=== PATIENT | male | born 1960 | race Hispanic/Latino ===

== ENCOUNTER → 2019-02-19 | Outpatient (CLI) | payer OTHER ==
--- NOTE | 2019-02-19 17:35 | Diagnostic Imaging Report ---
EXAM: CT Abdomen and Pelvis WITHOUT contrast INDICATION: Renal colic. Gross hematuria. COMPARISON: None. TECHNIQUE: Abdomen and pelvis were scanned utilizing a multidetector helical scanner from the lung base to the pubic symphysis without administration of IV contrast. Absence of intravenous contrast decreases sensitivity for detection of focal lesions and vascular pathology. Coronal and sagittal reformations were obtained. Routine protocol was performed. IV CONTRAST: None. ORAL CONTRAST: Water RADIATION DOSE: Total DLP: 718.72 mGy*cm Estimated effective dose: (DLP x 0.015 x size factor) mSv COMPLICATIONS: None FINDINGS: LINES and TUBES: None. LOWER THORAX: Unremarkable HEPATOBILIARY: No focal hepatic lesions. No biliary ductal dilation. GALLBLADDER: No radio-opaque stones or sludge. No wall thickening. SPLEEN: No splenomegaly. PANCREAS: No focal masses or ductal dilatation. ADRENALS: No adrenal nodules KIDNEYS/URETERS: No hydronephrosis. No cystic or solid mass lesions. 8 mm obstructing calculus in the left UPJ on coronal image 56, resulting in mild left hydronephrosis. GI TRACT: No abnormal distention, wall thickening, or evidence of bowel obstruction. There are diverticula within the colon without evidence of diverticulitis. Appendix is normal. PELVIC ORGANS/BLADDER: Unremarkable. LYMPH NODES: No lymphadenopathy. VESSELS: There is mild atherosclerotic disease in the aorta and major arterial branches. PERITONEUM / RETROPERITONEUM: No free air or fluid. BONES: Degenerative disc disease at L4-L5. SOFT TISSUES: Bilateral small fat-containing inguinal hernias, right larger than left. Small fat-containing umbilical hernia. IMPRESSION: 1. 8 mm obstructing calculus in the left UPJ resulting in mild left hydronephrosis. Dr. Bush was notified of the findings at 6:05 PM on 02/19/2019. Signed by: Dr. Derrek Anderson M.D. on 02/19/2019 6:11 PM
== END ==
LOC: CT 16:31
PROVIDERS: ATTEND Family Medicine
DX: N23 Unspecified renal colic (principal); R31.0 Gross hematuria
CPT/HCPCS: 74176

== ENCOUNTER → 2019-07-09 | Day surgery (SDC) | payer OTHER ==
[2019-07-07 17:08] LABS: BASOPHILS % 0.5 % (0.0-1.0); EOSINOPHILS # (AUTO) 0.2 (0.0-0.4); EOSINOPHILS % 2.6 % (0.0-6.0); HEMATOCRIT 39.7 % (38.2-49.6); HEMOGLOBIN 13.6 g/dL (14.0-18.0); LYMPHOCYTES # (AUTO) 1.5 (1.0-3.2); LYMPHOCYTES % 18.1 % (18.0-39.1); MEAN CORPUSCULAR HEMOGLOBIN 29.4 pg (28-32); MEAN CORPUSCULAR HGB CONC 34.3 g/dL (31-35); MEAN CORPUSCULAR VOLUME 85.9 fL (81-99); MONOCYTES % 11.5 % (4.4-11.3); NEUTROPHILS # (AUTO) 5.6 (2.1-6.9); NEUTROPHILS % 66.4 % (38.7-80.0); PLATELET COUNT 194 x10e3/uL (140-360); RED BLOOD COUNT 4.62 x10e6/uL (4.3-5.7); RED CELL DISTRIBUTION WIDTH 13.1 % (11.7-14.4)
[2019-07-07 17:19] LABS: INR 1.02; PROTHROMBIN TIME 13.9 seconds (11.9-14.5)
[2019-07-07 17:20] LABS: PARTIAL THROMBOPLASTIN TIME 29.2 seconds (23.8-35.5)
[2019-07-07 17:57] LABS: ALANINE AMINOTRANSFERASE 31 IU/L (0-55); ALBUMIN 4.4 g/dL (3.5-5.0); ALBUMIN/GLOBULIN RATIO 1.3 (0.8-2.0); ALKALINE PHOSPHATASE 71 IU/L (40-150); ANION GAP 15.5 mmol/L (8-16); BLOOD UREA NITROGEN 29 mg/dL (7-26); BUN/CREATININE RATIO 24 (6-25); CALCIUM 10.2 mg/dL (8.4-10.2); CARBON DIOXIDE 25 mmol/L (22-29); CHLORIDE 100 mmol/L (98-107); CREATININE, SERUM 1.19 mg/dL (0.72-1.25); EST GLOMERULAR FILTRATION RATE > 60 ML/MIN (60-); GLUCOSE 102 mg/dL (74-118); POTASSIUM 3.5 mmol/L (3.5-5.1); SODIUM 137 mmol/L (136-145)
[2019-07-07 18:14] LABS: CHOL/HDL RATIO 3.1 (3.9-4.7)
[~2019-07-09] VITALS: Ht 177.8 cm; Wt 90.7 kg
[~2019-07-09] MED LIST: AMLODIPINE BESYL5 MG PO; ATORVASTATIN CA20 MG PO; FENTANYL CITRATE/PF 100MCG/2 ML INJ ONE; GLIPIZIDE5 MG PO; HEPARIN SOD/SOD CHLORIDE 2,000 ML ONE; IOPAMIDOL 370 MG/ML 200 ML INFUS..BTL INJ ONE; LIDOCAINE HCL 2% LOCAL 20 ML VIAL ONE; LOSARTAN POTAS100 MG PO; LOSARTAN-HCTZ1 EAC1 PO; METFORMIN HCL500 MG PO; MIDAZOLAM HCL 2 MG/2 ML VIAL ONE; SODIUM CHLORIDE 0.9% 1000ML 1,000 ML ONE; VERAPAMIL HCL 2.5 MG/ML 2 ML VIAL ONE
--- OUTSIDE RECORDS SUMMARY | 2019-07-09 12:02 | XMS REPORT ---
Author Author [facility] Address Unknown Phone Unavailable Care Team Providers [employer] Name Role Phone ROBERTO BUSH Unavailable Unavailable Payers Payer Name Policy Type Policy Number Effective Date Expiration Date Problems This patient has no known problems. Allergies, Adverse Reactions, Alerts Allergy Name Allergy Type Status Severity Reaction(s) Onset Date Inactive Date Treating Clinician Comments No Known Allergies DA Active U 2019-02-26 00:00:00 Medications This patient has no known medications. Results Test Description Test Time Test Comments Text Results Atomic Results Result Comments LIPOMA 2019-05-08 18:00:00 RUN DATE: 05/08/19 [facility] PAGE 1 RUN TIME: 1800 Specimen Inquiry RUN USER: INTERFACE PATIENT: JACE WRIGHT LOC: [place] #: [id number] AGE/SX: 58/M ROOM: RE05/07/19REG DR: Irving Mcdonald MD : 60 BED: DIS: STATUS: [facility] [place] TLOC: SPEC #: [id number] RECD: 05/07/19 STATUS: [facility] #: [id number] ARIANA: 05/07/19- [facility] DR: Irving Mcdonald MD ENTERED: 05/07/19 SP TYPE: LIPOMA OTHR DR: Roberto Bush MD ORDERED: GROSS COPIES TO: Irving Mcdonald MD [address] [place] [address] Roberto Bush MD [address] [place] [address] PROCEDURES: GROSS (05/08/19-0351) TISSUES: 1. INGUINAL REGION, NOS - LEFT CORD LIPOMA 2. INGUINAL REGION, NOS - RIGHT CORD LIPOMA CLINICAL HISTORY COLLECTION DATE: 05/07/2019 INGUINAL HERNIA FINAL DIAGNOSIS Lipoma of left cord, excision: MATURE ADIPOSE TISSUE WITH FEW UNREMARKABLE VASCULAR SPACES NO ATYPICAL FEATURES PRESENT NEGATIVE FOR MALIGNANCY Lipoma of right cord, excision: MATURE ADIPOSE TISSUE WITH FEW UNREMARKABLE VASCULAR SPACES NO ATYPICAL FEATURES PRESENT NEGATIVE FOR MALIGNANCY RRB/juan antonio Travis [id number] CONTINUED ON NEXT PAGE RUN DATE: 05/08/19 [facility] PAGE 2 RUN TIME: 1800 Specimen Inquiry RUN USER: INTERFACE SPEC #: [id number] PATIENT: JACE WRIGHT #[id number] (Continued)---- MACROSCOPIC The first specimen is received in formalin, labeled with the patient's name, and identified as "lipoma of the left cord". The specimen consists of jacques yellow soft tissue covered by a thin membranous tissue measuring 6.7 x 2.0 x 1.7 cm. Sectioning reveals jacques-yellow soft cut surface. Police Patrol Officer section is submitted as (1). The second specimen is received in formalin, labeled with the patient's name, and identified as "lipoma of the right cord". The specimen consists of jacques-yellow soft lobulated tissue covered by a thin membranous tissue measuring 6.5 x 4.8 x 2.0 cm. Sectioning reveals jacques-yellow soft cut surface. Police Patrol Officer section is submitted as (2). GROSS PERFORMED AT [facility] [address] [place] [phone])[phone] MICROSCOPIC All of the stains, including any controls performed, stain appropriately. MICROSCOPIC PERFORMED AT [facility] [address] [place] [phone])[phone] PERFORMING SITE Diagnosis performed at: [facility], LISA [address] [place] [address] Signed SIGNATURE ON FILE Ronnie Gamble MD 05/08/19 1800 END OF REPORT GLUBED 2019-05-07 07:52:00 GLUBED (test code=GLUBED) 113 mg/dL 74-106 Performed by certified nickel operator at [facility] COMPREHENSIVE METABOLIC [id number] 16:34:00* Test Item Value Reference Range Comments SODIUM (test code=NA) 136 mmol/L 136-145 POTASSIUM (test code=K) 4.0 mmol/L 3.5-5.1 CHLORIDE (test code=CL) 98.0 mmol/L 98-107 CARBON DIOXIDE (test code=CO2) 30.0 mmol/L 21-32 ANION GAP (test code=GAP) 12.0 10-20 GLUCOSE (test code=GLU) 258 mg/dL 74-106 BLOOD UREA NITROGEN (test code=BUN) 27 mg/dL 7-18 GLOMERULAR FILTRATION RATE (test code=GFR) 57 mL/min >=60 Estimated GFR by using Modified MDRD formula.Chronic kidney disease is defined as either kidney damageor GFR <60 mL/min/1.73 m2 for >3 months. CREATININE (test code=CREAT) 1.30 mg/dL 0.7-1.3 BUN/CREATININE RATIO (test code=BUN/CREA) 20.8 10-20 TOTAL PROTEIN (test code=PROT) 7.8 gram/dL 6.4-8.2 ALBUMIN (test code=ALB) 4.1 g/dL 3.4-5.0 GLOBULIN (test code=GLOB) 3.7 gram/dL 2.7-4.2 ALBUMIN/GLOBULIN RATIO (test code=A/G) 1.1 0.75-1.50 CALCIUM (test code=CA) 9.6 mg/dL 8.5-10.1 BILIRUBIN TOTAL (test code=BILT) 0.40 mg/dL 0.0-1.0 SGOT/AST (test code=AST) 14 IUnit/L 15-37 SGPT/ALT (test code=ALT) 41 IUnit/L 12-78 ALKALINE PHOSPHATASE TOTAL (test code=ALKP) 111 IUnit/L 45-117 Note change in reference range due to change in reagent. - XR CHEST 2 [id number] 16:34:00 FAX: Irving Montero MD [phone] [place]: O St: PRE FAX: Roberto Mims MD [phone] Name: JACE WRIGHT [facility] : 1960 Age/S: 58/M [address] [facility] Unit #: [id number] Loc: [place] [address] Phys: Irving Mcdonald MD Acct: [id number] Dis Date: Status: PRE [facility] [place] PHONE #: [phone] Exam Date: 04/30/2019 0108 FAX #: [phone] Reason: PRE OP EXAMS: CPT CODE: [id number] XR CHEST 2 V 68766 REASON FOR EXAM: PRE OP Exam Order Date: 04/30/2019 2:20 PM Ordering MFransico: Irving Mcdonald MD PROCEDURE: - XR CHEST 2 V COMPARISON: None FINDINGS: The lungs are clear. There is no pleural effusion or pneumothorax. Pulmonary vascularity is within normal limits. Cardiomediastinal silhouette is normal in size for technique. The mediastinal contours are within normal limits. Musculoskeletal structures are within normal limits. The visualized upper abdomen is within normal limits. IMPRESSION: No acute cardiopulmonary process. E lectronically Signed by Rich Shetty MD on 04/30/2019 at 1634 Reported and signed by: Rich Shetty MD CC: Db Hagan; Roberto Bush MD Technologist: Gopi Odell RT(R) Trnscrd Date/Time/By: 04/30/2019 (3557) : By: RenettaRBobyR R31 Orig Print D/T: S: 04/30/2019 (8920) PAGE 1 Signed Report CBC W/AUTO [id number] 15:58:00* Test Item Value Reference Range Comments WHITE BLOOD CELL (test code=WBC) 13.1 K/mm3 4.5-12.5 RED BLOOD CELL (test code=RBC) 4.81 mill/mm3 4.0-5.8 HEMOGLOBIN (test code=HGB) 14.0 gram/dL 13.0-17.5 HEMATOCRIT (test code=HCT) 42.1 % 42.0-52.0 MEAN CELL VOLUME (test code=MCV) 87.5 fL 80-98 MEAN CELL HGB (test code=MCH) 29.1 picogram 27.0-33.0 MEAN CELL HGB CONCETRATION (test code=MCHC) 33.3 gram/dL 33.0-36.0 RED CELL DISTRIBUTION WIDTH (test code=RDW) 13.4 % 11.6-16.2 RED CELL DISTRIBUTION WIDTH SD (test code=RDW-SD) 42.7 fL 37.0-51.0 PLATELET COUNT (test code=PLT) 229 K/mm3 150-450 MEAN PLATELET VOLUME (test code=MPV) 10.5 fL 6.7-11.0 NEUTROPHIL % (test code=NT%) 80.4 % 39.0-69.0 IMMATURE GRANULOCYTE % (test code=IG%) 2.0 % 0.0-5.0 LYMPHOCYTE % (test code=LY%) 7.8 % 25.0-55.0 MONOCYTE % (test code=MO%) 9.5 % 0.0-10.0 EOSINOPHIL % (test code=EO%) 0.0 % 0.0-5.0 BASOPHIL % (test code=BA%) 0.3 % 0.0-1.0 NUCLEATED RBC % (test code=NRBC%) 0.0 % 0-0 NEUTROPHIL # (test code=NT#) 10.55 K/mm3 1.8-7.7 IMMATURE GRANULOCYTE # (test code=IG#) 0.26 x10 3/uL 0-0.03 LYMPHOCYTE # (test code=LY#) 1.02 K/mm3 1.0-5.0 MONOCYTE # (test code=MO#) 1.24 K/mm3 0-0.8 EOSINOPHIL # (test code=EO#) 0.00 K/mm3 0.0-0.5 BASOPHIL # (test code=BA#) 0.04 K/mm3 0.0-0.2 NUCLEATED RBC # (test code=NRBC#) 0.00 K/mm3 0.0-0.1 MANUAL DIFF REQUIRED (test code=MDIFF) NO CBC W/AUTO [id number] 15:55:00* Test Item Value Reference Range Comments WHITE BLOOD CELL (test code=WBC) K/mm3 4.5-12.5 RED BLOOD CELL (test code=RBC) mill/mm3 4.0-5.8 HEMOGLOBIN (test code=HGB) 14.0 gram/dL 13.0-17.5 HEMATOCRIT (test code=HCT) 42.1 % 42.0-52.0 MEAN CELL VOLUME (test code=MCV) fL 80-98 MEAN CELL HGB (test code=MCH) picogram 27.0-33.0 MEAN CELL HGB CONCETRATION (test code=MCHC) gram/dL 33.0-36.0 RED CELL DISTRIBUTION WIDTH (test code=RDW) % 11.6-16.2 RED CELL DISTRIBUTION WIDTH SD (test code=RDW-SD) fL 37.0-51.0 PLATELET COUNT (test code=PLT) K/mm3 150-450 MEAN PLATELET VOLUME (test code=MPV) fL 6.7-11.0 NEUTROPHIL % (test code=NT%) % 39.0-69.0 IMMATURE GRANULOCYTE % (test code=IG%) % 0.0-5.0 LYMPHOCYTE % (test code=LY%) % 25.0-55.0 MONOCYTE % (test code=MO%) % 0.0-10.0 EOSINOPHIL % (test code=EO%) % 0.0-5.0 BASOPHIL % (test code=BA%) % 0.0-1.0 NEUTROPHIL # (test code=NT#) K/mm3 1.8-7.7 LYMPHOCYTE # (test code=LY#) K/mm3 1.0-5.0 MONOCYTE # (test code=MO#) K/mm3 0-0.8 EOSINOPHIL # (test code=EO#) K/mm3 0.0-0.5 BASOPHIL # (test code=BA#) K/mm3 0.0-0.2 KIDNEY STONE [id number] 10:27:00* Test Item Value Reference Range Comments KIDNEY STONE ANALYSIS (test code=STONEK) mm () Specimens received as a mixture of whole stones andfragments. SOURCE OF STONE (test code=STONESRC) LEFT URETERAL STONES STONE ANALYSIS COMMENT (test code=STONECOM) NO NIDUS VISUALIZED NIDUS Color: Brown Size : Specimens received as a mixture of whole stones and fragments. Composition: Percentage (Represents the % composition) Ca oxalate dihydrate 35 % Ca oxalate monohydr. 60 % Calcium phosphate 05 % Test performed at: [facility] [address] [place] [address] STONE ANALYSIS (test code=STONE) () Photograph will follow under separate cover. WEIGHT OF STONE (test code=STONEWT) 63.0 mg () Test performed at: [employer] [place] [address] SPECIMEN COMMENTS: LEFT URETERAL STONES FOR ANALYSISKIDNEY STONE ANALYSIS 2019-03-12 10:17:00* Test Item Value Reference Range Comments KIDNEY STONE ANALYSIS (test code=STONEK) mm () Specimens received as a mixture of whole stones andfragments. SOURCE OF STONE (test code=STONESRC) STONE ANALYSIS COMMENT (test code=STONECOM) NIDUS STONE ANALYSIS (test code=STONE) () Photograph will follow under separate cover. WEIGHT OF STONE (test code=STONEWT) 63.0 mg () Test performed at: [facility] [address] [place] [address] SPECIMEN COMMENTS: LEFT URETERAL STONES FOR [id number] 15:35:00 RUN DATE: 03/05/19 [facility] PAGE 1 RUN TIME: 1535 Specimen Inqui ry RUN USER: INTERFACE PATIENT: JACE WRIGHT ACCT #: [id number] LOC: [facility] U #: [id number] AGE/SX: 58/M ROOM: RE03/04/19REG DR: Irving Mcdonald MD : 60 BED: DIS: STATUS: [facility] TLOC: SPEC #: [id number] RECD: 03/04/19 STATUS: [facility] REQ #: [id number] ARIANA: 03/04/[address]: Irving Mcdonald MD ENTERED: 03/04/19 SP TYPE: CALCULI OTHR DR: Roberto Bush MD ORDERED: GROSS COPIES TO: Irving Mcdonald MD [address] [place] [address] Roberto Bush MD [address] [place] [address] PROCEDURES: GROSS (03/04/19-) TISSUES: LEFT URETERAL ORIFICE - STONES CLINICAL HISTORY COLLECTION DATE: 03/04/19 LEFT URETERAL STONES FINAL DIAGNOSIS Left ureteral stones, removal: CALCULI TO BE SENT FOR CHEMICAL ANALYSIS W/ D 42496 MACROSCOPIC The specimen is received in a container labeled with the patient's name and identified as "left uret eral stones". It consists of jacques calculi measuring 0.6 cm in aggregate. GROSS PERFORMED AT [facility] [address] [facility] CONTINUED O N NEXT PAGE RUN DATE: 03/05/19 [facility] PAGE 2 RUN TIME: 1535 Specimen Inquiry RUN USER: INTERFACE SPEC #: [id number] PATIENT : JACE WRIGHT #[id number] (Continued) MACROSCOPIC (Continued) [place] [id number] [phone])[phone]--- --------- Signed SIGNATURE ON FILE Darlene Hernandez MD 0 03/05/19 1535 END OF REPORT - XR CYSTOURETHRO [id number] 16:35:00 FAX: Irving Montero MD [phone] [place]: St: [facility] FAX: Roberto Mims MD [phone] Name: JACE WRIGHT [facility] : 1960 Age/S: 58/M [address] [facility] Unit #: [id number] Loc: [place] [address] Phys: Irving Mcdonald MD Acct: [id number] Dis Date: Status: REG [facility] [place] PHONE #: [phone] Exam Date: 03/04/2019 7781 FAX #: [phone] Reason: CYSTO RETRO EXAMS: CPT CODE: [id number] XR CYSTOURETHRO RETRO 42997 TECHNIQUE - XR CYSTOURETHRO RETRO . COMPARISON: None provided. HISTORY: 58 years Male CYSTO RETRO FINDINGS: 36.3 seconds fluoroscopy time. 8.04 mg. Contrast in the left collecting system. Left ureter stent noted. Please see the intraoperative dictation. 15 images. IMPRESSION: 36.3 seconds fluoroscopy time. 8.04 mg. Contrast in the left collecting system. Left ureter stent noted. Please see the intraoperative dictation. 15 images. at 1635 Reported and signed by: Camilo Huang M.D. CC: Irving Mcdonald M.D.; Roberto Bush MD Technologist: Allegra Harris(R) Trnscrd Date/Time/By: 03/04/2019 (9976) : By: RobertYOHAN Orig Print D/T: S: 03/04/2019 (6995) PAGE 1 Signed Report [id number] 12:32:00* Test Item Value Reference Range Comments GLUBED (test code=GLUBED) 99 mg/dL 74-106 Performed by certified nickel operator at [facility] COMPREHENSIVE METABOLIC [id number] 14:28:00* Test Item Value Reference Range Comments SODIUM (test code=NA) 140 mmol/L 136-145 POTASSIUM (test code=K) 3.3 mmol/L 3.5-5.1 CHLORIDE (test code=CL) 100.0 mmol/L 98-107 CARBON DIOXIDE (test code=CO2) 32.0 mmol/L 21-32 ANION GAP (test code=GAP) 11.3 10-20 GLUCOSE (test code=GLU) 106 mg/dL 74-106 BLOOD UREA NITROGEN (test code=BUN) 23 mg/dL 7-18 GLOMERULAR FILTRATION RATE (test code=GFR) > 60 mL/min >=60 Estimated GFR by using Modified MDRD formula.Chronic kidney disease is defined as either kidney damageor GFR <60 mL/min/1.73 m2 for >3 months. CREATININE (test code=CREAT) 1.20 mg/dL 0.7-1.3 BUN/CREATININE RATIO (test code=BUN/CREA) 19.2 10-20 TOTAL PROTEIN (test code=PROT) 8.2 gram/dL 6.4-8.2 ALBUMIN (test code=ALB) 4.3 g/dL 3.4-5.0 GLOBULIN (test code=GLOB) 3.9 gram/dL 2.7-4.2 ALBUMIN/GLOBULIN RATIO (test code=A/G) 1.1 0.75-1.50 CALCIUM (test code=CA) 9.9 mg/dL 8.5-10.1 BILIRUBIN TOTAL (test code=BILT) 0.50 mg/dL 0.0-1.0 SGOT/AST (test code=AST) 19 IUnit/L 15-37 SGPT/ALT (test code=ALT) 41 IUnit/L 12-78 ALKALINE PHOSPHATASE TOTAL (test code=ALKP) 80 IUnit/L 45-117 Note change in reference range due to change in reagent. COMPREHENSIVE METABOLIC [id number] 14:20:00* Test Item Value Reference Range Comments SODIUM (test code=NA) 140 mmol/L 136-145 POTASSIUM (test code=K) 3.3 mmol/L 3.5-5.1 CHLORIDE (test code=CL) 100.0 mmol/L 98-107 CARBON DIOXIDE (test code=CO2) mmol/L 21-32 ANION GAP (test code=GAP) 10-20 GLUCOSE (test code=GLU) mg/dL 74-106 BLOOD UREA NITROGEN (test code=BUN) mg/dL 7-18 GLOMERULAR FILTRATION RATE (test code=GFR) mL/min >=60 CREATININE (test code=CREAT) mg/dL 0.7-1.3 BUN/CREATININE RATIO (test code=BUN/CREA) 10-20 TOTAL PROTEIN (test code=PROT) gram/dL 6.4-8.2 ALBUMIN (test code=ALB) g/dL 3.4-5.0 GLOBULIN (test code=GLOB) gram/dL 2.7-4.2 ALBUMIN/GLOBULIN RATIO (test code=A/G) 0.75-1.50 CALCIUM (test code=CA) mg/dL 8.5-10.1 BILIRUBIN TOTAL (test code=BILT) mg/dL 0.0-1.0 SGOT/AST (test code=AST) IUnit/L 15-37 SGPT/ALT (test code=ALT) IUnit/L 12-78 ALKALINE PHOSPHATASE TOTAL (test code=ALKP) IUnit/L 45-117 CBC W/AUTO [id number] 14:03:00* Test Item Value Reference Range Comments WHITE BLOOD CELL (test code=WBC) 7.5 K/mm3 4.5-12.5 RED BLOOD CELL (test code=RBC) 4.93 mill/mm3 4.0-5.8 HEMOGLOBIN (test code=HGB) 14.3 gram/dL 13.0-17.5 HEMATOCRIT (test code=HCT) 42.9 % 42.0-52.0 MEAN CELL VOLUME (test code=MCV) 87.0 fL 80-98 MEAN CELL HGB (test code=MCH) 29.0 picogram 27.0-33.0 MEAN CELL HGB CONCETRATION (test code=MCHC) 33.3 gram/dL 33.0-36.0 RED CELL DISTRIBUTION WIDTH (test code=RDW) 12.9 % 11.6-16.2 RED CELL DISTRIBUTION WIDTH SD (test code=RDW-SD) 40.9 fL 37.0-51.0 PLATELET COUNT (test code=PLT) 226 K/mm3 150-450 MEAN PLATELET VOLUME (test code=MPV) 10.1 fL 6.7-11.0 NEUTROPHIL % (test code=NT%) 70.3 % 39.0-69.0 IMMATURE GRANULOCYTE % (test code=IG%) 0.4 % 0.0-5.0 LYMPHOCYTE % (test code=LY%) 17.1 % 25.0-55.0 MONOCYTE % (test code=MO%) 10.1 % 0.0-10.0 EOSINOPHIL % (test code=EO%) 1.7 % 0.0-5.0 BASOPHIL % (test code=BA%) 0.4 % 0.0-1.0 NUCLEATED RBC % (test code=NRBC%) 0.0 % 0-0 NEUTROPHIL # (test code=NT#) 5.30 K/mm3 1.8-7.7 IMMATURE GRANULOCYTE # (test code=IG#) 0.03 x10 3/uL 0-0.03 LYMPHOCYTE # (test code=LY#) 1.29 K/mm3 1.0-5.0 MONOCYTE # (test code=MO#) 0.76 K/mm3 0-0.8 EOSINOPHIL # (test code=EO#) 0.13 K/mm3 0.0-0.5 BASOPHIL # (test code=BA#) 0.03 K/mm3 0.0-0.2 NUCLEATED RBC # (test code=NRBC#) 0.00 K/mm3 0.0-0.1 MANUAL DIFF REQUIRED (test code=MDIFF) NO CT ABDOMEN/PELVIS [id number] 17:23:00 [facility] [address] [address] Patient Name: JACE WRIGHT MR #: [id number] : 1960 Age/Sex: 58/M Req #: [id number] Adm Physician: Ordered by: ARMAND CASTELLANOS, ROBERTO Munoz MD Report #: [id number] Location: CT Room/Bed: Procedure: 050 9-0029 CT/CT ABDOMEN/PELVIS WO Exam Date: 02/19/19 E xam Time: 1656 REPORT STATUS: Beth d EXAM: CT Abdomen and Pelvis WITHOUT contrast INDICATION: Renal colic. G ross hematuria. COMPARISON: None. TECHNIQUE: Abdomen and pelvis were scanned utilizing a multidetector helical scanner from the lung base to the pubic sym physis without administration of IV contrast. Absence of intravenous contrast decreases sensitivity for detection of focal lesions and vascular pathology. C oronal and sagittal reformations were obtained. Routine protocol was performed . IV CONTRAST: None. ORAL CONTRAST: Water RADIATION DOSE: Total DLP: 718.72 mGy*cm Estimated effective dose: (DLP x 0.015 x size factor) mSv COMPLICATIONS: None FI NDINGS: LINES and TUBES: None. LOWER THORAX: Unremarkable HEPATO BILIARY: No focal hepatic lesions. No biliary ductal dilation. GALLBLADDE R: No radio-opaque stones or sludge. No wall thickening. SPLEEN: No spleno megaly. PANCREAS: No focal masses or ductal dilatation. ADRENALS: N o adrenal nodules KIDNEYS/URETERS: No hydronephrosis. No cystic or haider id mass lesions. 8 mm obstructing calculus in the left UPJ on coronal image 5 6, resulting in mild left hydronephrosis. GI TRACT: No abnormal distentio n, wall thickening, or evidence of bowel obstruction. There are diverticula w ithin the colon without evidence of diverticulitis. Appendix is normal. PELVIC ORGANS/BLADDER: Unremarkable. LYMPH NODES: No lymphadenopathy. VESSELS: There is mild atherosclerotic disease in the aorta and major arterial branches. PERITONEUM / RETROPERITONEUM: No free air or fluid. BONES: Degenerative disc disease at L4-L5. SOFT TISSUES: Bilateral small fat-conta ining inguinal hernias, right larger than left. Small fat-containing umbilical hernia. IMPRESSION: 1. 8 mm obstructing calculus in the left UPJ resul ting in mild left hydronephrosis. Dr. Bush was notified of the findings at 6:05 PM on 02/19/2019. Signed by: Dr. Derrek Esteban M.D. on 02/19 6:11 PM Dictated By: CK ESTEBAN MD, MD 1811 Transcribed By: RILEY on 02/19/19 181 1 COPY TO: ROBERTO BUSH
[2019-07-09 14:30] VITALS: BP 127/88
--- NOTE | 2019-07-09 14:30 | NUR ---
1430p bedside report received from COY Schwab.Identiferx2. Alert oriented and appropriate, PERRLA, respirations even and unlabored to room air. Pulses x4 extremities equal and strong. Pedal pulses PT/DPx4. Cap fill brisk < 3 sec. Skin warm and dry integrity appears D/I. IV 20g to left forearm at 100cchr, presents healthy w/o s/s of infiltration or complaint. Abdomen soft and supple. pt offered toileting, denies need to urinate or defecate. No personal affects with patient. Family at bedside. Pt and family verbalizes understanding of POC. Currently w/o complaint of pain or need. Tr band ok decrease at 1600pm No gross issues pain,palllor,pressure or dysrhythmia. lise/rn
[2019-07-09 14:45] VITALS: BP 128/77
[2019-07-09 15:00] VITALS: BP 115/77
[2019-07-09 15:30] VITALS: BP 124/77
[2019-07-09 16:00] VITALS: BP 124/66
--- NOTE | 2019-07-09 16:00 | NUR ---
1600pRADIAL Compression removal: Initial Cuff volume 12 cc 1600pm -2cc Removed No hematoma/bleeding noted with normal neurovascular function. 1615pm -5 cc Removed No hematoma/ bleeding noted with normal neurovascular function. 1630pm -5 cc Removed No hematoma/bleeding noted with normal neurovascular function. Air removal completed. Stasis achieved sterile 2x2,Tegaderm, Coban dressing No hematoma, bleeding noted with normal neurovascular function. Wrist splint in place. Pt instructed on POC. Ds/Rn
[2019-07-09 16:30] VITALS: BP 125/70
--- NOTE | 2019-07-09 16:30 | NUR ---
1630pmPt meets DC criteria. Back to baseline orientation.Rt radial assessed for s/s of complication and presence of hematoma. Skin warm, dry, no discolor, and pulses present. IV removed from left forearm. Distal tip appears intact. VS WNL. Pt denies pain, sob, or need at this time. Family at XXXXX. Review of discharge paperwork and follow up instructions. verbalized understanding. Pt to wheelchair and transported to front of hospital. Transferred to private vehicle under own strength w/o incident with DC paperwork in hand. - ds/rn
--- NOTE | 2019-07-09 19:46 | Operative Report ---
DATE OF PROCEDURE: 07/09/2019 SURGEON: Zion Lowery MD PROCEDURE INDICATION: Angina pectoris. PROCEDURES PERFORMED: 1. Left heart catheterization. 2. Selective coronary angiography. 3. Left anterior descending fractional flow reserve (DFR). 4. Right coronary artery fractional flow reserve (DFR). 5. Right radial TR band hemostasis. PROCEDURE COMPLICATIONS: None. ESTIMATED BLOOD LOSS: Less than 15 mL. PROCEDURE SUMMARY: After consent was obtained, the patient was prepped and draped in a sterile fashion. The right femoral site was locally infiltrated with 2% lidocaine and access was obtained. A 5-Gabonese outer diameter slender sheath was advanced and a 5-Gabonese TIG catheter was used for engagement of the left main then the right coronary artery and to cross the aortic valve a pigtail catheter was used (MIP). 3.5 no side-holes 5-Gabonese guide catheter was used. These were the following findings: 1. LV pressure is 106/-9 with end-diastolic pressure of 10. 2. Aortic pressure was 106/69. 3. Left ventriculogram reveals preserved left ventricular systolic function, normal regional wall motion and left ventricular ejection fraction of 55% to 60%. 4. The left main is large in caliber with luminal irregularities and it gives an LAD and circumflex. 5. The LAD has proximal luminal irregularities. There is moderate calcifications in the mid segment of the LAD with an area of stenosis 50% to 60% following a diagonal and preceding septal continuing education director. The rest of LAD gives small caliber and short diagonals and septal perforators as it courses to the apex or rubs around and ends. Distal to the mid LAD area of stenosis the LAD DFR is 0.93. 6. The circumflex is nondominant with luminal irregularities, large in caliber, giving four obtuse marginal. 7. The right coronary artery is large in caliber and dominant it has two diffuse area of 50% stenosis in the mid segment prior to giving 2nd RV marginal. Terminal branches are RPDA and RPLV of medium caliber. Of note, the DFR of the RCA is 0.99. CONCLUSION: Moderate multivessel coronary artery disease. Recommend weaning TR band and medical aggressive optimization for CAD. Outpatient followup in the office in 3 to 4 weeks. MD CURT Wong/ARNULFO /[id number]
== END | disposition home or self-care (01) ==
LOC: CATH LAB 11:59
PROVIDERS: ATTEND Internal Medicine Cardiovascular Disease
DX: I25.119 Atherosclerotic heart disease of native coronary artery with unspecified angina pectoris (principal); I10 Essential (primary) hypertension; E78.5 Hyperlipidemia, unspecified; E11.8 Type 2 diabetes mellitus with unspecified complications; E66.01 Morbid (severe) obesity due to excess calories; Z01.810 Encounter for preprocedural cardiovascular examination; Z01.812 Encounter for preprocedural laboratory examination; Z79.84 Long term (current) use of oral hypoglycemic drugs; Z68.31 Body mass index [BMI] 31.0-31.9, adult; Z87.891 Personal history of nicotine dependence; Z82.49 Family history of ischemic heart disease and other diseases of the circulatory system
CPT/HCPCS: 36415; 80053; 80061; 83036; 85025; 85610; 85730; 93005; 93458; 93571; 93572; C1753; C1887; J2001; J2250; J3010; J7030; Q9967